=== PATIENT | female | born 1930 | race Caucasian/White ===

== ENCOUNTER 2021-09-08 22:27 | Inpatient (IN) ==
[2021-09-09] MEDS ORDERED: *HR* Heparin 5,000 UNIT/ML VIAL IVP PRN ×2 (03:57)
[2021-09-09] MEDS ORDERED: Acetaminophen 325 MG TABLET PO PRN (03:58)
[2021-09-09] MEDS ORDERED: Ondansetron 4 MG/2 ML VIAL IVP PRN (03:58)
[2021-09-09] MEDS ORDERED: Naloxone 0.4 MG/ML INJ IVP PRN (03:58)
[2021-09-09 04:49] LABS: Basophils % 0.3 %; Eosinophils % 0.1 %; Hematocrit 35.8 % (35.3-44.9); Hemoglobin 11.1 g/dL (11.5-15.4); Immature Granulocytes % 0.6 % (0-4); Lymphocytes % 9.5 %; Mean Corpuscular Hemoglobin 29.2 pg (28.0-33.3); Mean Corpuscular Volume 94.2 fL (83.0-100.0); Mean Platelet Volume 9.3 fL (9.4-12.4); Monocytes # 0.1 K/mcL (0.0-1.3); Neutrophils # 9.3 K/mcL (1.6-8.9); Platelet Count 279 K/mcL (140-400); Red Cell Distribution Width 15.3 % (11.5-14.5); Segmented Neutrophils % 88.5 %; White Blood Count 10.6 K/mcL (4.3-11.1)
[2021-09-09] MEDS: Heparin 25,000UNIT/250ML 1/2NS 25,000 UNIT/250 ML IV.SOLN IVC SCH (04:55)
[2021-09-09 04:56] LABS: Heparin anti-factor XA UFH 0.31 IU/mL (0.30-0.70); INR 1.4; Prothrombin Time 15.4 Seconds (9.4-12.1)
[2021-09-09 04:58] LABS: Activated Partial Thrombo Time 64.9 Seconds (26.0-36.0)
[2021-09-09 05:08] LABS: Alanine Aminotransferase 17 Units/L (7-52); Albumin 3.7 g/dL (3.5-5.7); Albumin/Globulin Ratio 1.2 (1.1-2.2); Alkaline Phosphatase 120 Units/L (34-104); Aspartate Amino Transferase 24 Units/L (13-39); BUN/Creatinine Ratio 18 (6-26); Bilirubin,Total 0.7 mg/dL (0.3-1.0); Blood Urea Nitrogen 11 mg/dL (8-23); Calcium 8.6 mg/dL (8.6-10.3); Carbon Dioxide 22 mEq/L (23-29); Chloride 102 mEq/L (98-107); Globulin 3.2 g/dL (2.4-3.5); Glucose 161 mg/dL (70-105); Osmolality,Calculated 281 (280-300); Potassium 3.4 mEq/L (3.5-5.1); Sodium 134 mEq/L (136-145); Total Protein 6.9 g/dL (6.4-8.9); eGFR For African Americans > 60 (> 60); eGFR For Non-African Americans > 60 (> 60)
[2021-09-09] MEDS ORDERED: Potassium Chloride Elixir 20 MEQ/15 ML UDC PO ONE (05:27)
[2021-09-09] MEDS ORDERED: Perflutren Lipid Microsphere 1.3 ML in 0.9 % Sodium Chloride 8.7 ML IVP PRN (05:47)
[2021-09-09] MEDS: Furosemide 20 MG/2 ML VIAL IVP SCH ×2 (07:56→17:23)
[2021-09-09] MEDS: levoFLOXacin 750 MG/150 ML 750 MG/150 ML BAG IVPB SCH (08:24)
[2021-09-09] MEDS ORDERED: cefTRIAXone 2,000 MG in 0.9 % Sodium Chloride Mini Bag 100 ML IVPB SCH (09:00)
[2021-09-09] MEDS: Levalbuterol Neb 1.25 MG/3 ML IH SCH ×4 (11:02→20:25)
[2021-09-09] MEDS ORDERED: *HR* HYDROcodone/Acet 5/325 mg TABLET PO PRN (12:44)
[2021-09-09] MEDS: *HR* HYDROcodone/Acet 10/325 mg TABLET PO PRN (19:40)
[2021-09-09] MEDS: *HR* Metoprolol 5 MG/5 ML VIAL IVP PRN (19:40)
[2021-09-10] MEDS: *HR* Metoprolol 5 MG/5 ML VIAL IVP PRN ×3 (01:04→15:48)
[2021-09-10] MEDS: *HR* HYDROcodone/Acet 10/325 mg TABLET PO PRN ×4 (01:11→19:59)
[2021-09-10 02:41] LABS: Hematocrit 32.6 % (35.3-44.9); Hemoglobin 10.5 g/dL (11.5-15.4); Mean Corpuscular HGB Conc 32.2 g/dL (31.6-35.5); Mean Corpuscular Hemoglobin 29.6 pg (28.0-33.3); Mean Corpuscular Volume 91.8 fL (83.0-100.0); Mean Platelet Volume 9.8 fL (9.4-12.4); Platelet Count 298 K/mcL (140-400); Red Blood Count 3.55 M/mcL (3.82-4.97); Red Cell Distribution Width 15.5 % (11.5-14.5)
[2021-09-10 02:46] LABS: White Blood Count 17.5 K/mcL (4.3-11.1)
[2021-09-10 02:56] LABS: BUN/Creatinine Ratio 22 (6-26); Blood Urea Nitrogen 21 mg/dL (8-23); Calcium 8.1 mg/dL (8.6-10.3); Carbon Dioxide 21 mEq/L (23-29); Chloride 99 mEq/L (98-107); Cholesterol 87 mg/dL (< 200); Glucose 164 mg/dL (70-105); HDL Cholesterol 44 mg/dL (40-59); LDL Cholesterol,Calculated 21 mg/dL (< 100); Magnesium 1.6 mg/dL (1.6-2.6); Osmolality,Calculated 273 (280-300); Potassium 3.6 mEq/L (3.5-5.1); Sodium 128 mEq/L (136-145); Triglycerides 111 mg/dL (< 150); eGFR For African Americans > 60 (> 60); eGFR For Non-African Americans 56 (> 60)
[2021-09-10 02:58] LABS: Iron 58 mcg/dL (50-170)
[2021-09-10 03:09] LABS: % Iron Saturation 18 % (15-50); Transferrin 224 mg/dL (203-362)
[2021-09-10 03:16] LABS: Ferritin 114 ng/mL (10-120)
[2021-09-10 03:21] LABS: Folate 18.6 ng/mL (3.0-16.0)
[2021-09-10] MEDS: Levalbuterol Neb 1.25 MG/3 ML IH SCH (04:11)
[2021-09-10 04:23] LABS: Estimated Average Glucose 105 mg/dl; Hemoglobin A1C 5.3 %
[2021-09-10] MEDS: Heparin 25,000UNIT/250ML 1/2NS 25,000 UNIT/250 ML IV.SOLN IVC SCH (08:40)
[2021-09-10] MEDS: Furosemide 20 MG/2 ML VIAL IVP SCH ×2 (08:42→15:48)
[2021-09-10] MEDS: levoFLOXacin 750 MG/150 ML 750 MG/150 ML BAG IVPB SCH (08:43)
[2021-09-10] MEDS: carvediloL 6.25 MG TABLET PO SCH (15:48)
[2021-09-11] MEDS: *HR* HYDROcodone/Acet 10/325 mg TABLET PO PRN ×3 (01:17→14:07)
[2021-09-11 02:58] LABS: Hematocrit 34.4 % (35.3-44.9); Mean Corpuscular Hemoglobin 29.6 pg (28.0-33.3); Mean Corpuscular Volume 92.5 fL (83.0-100.0); Mean Platelet Volume 9.3 fL (9.4-12.4); Platelet Count 308 K/mcL (140-400); Red Blood Count 3.72 M/mcL (3.82-4.97); Red Cell Distribution Width 15.7 % (11.5-14.5); White Blood Count 12.4 K/mcL (4.3-11.1)
[2021-09-11 03:27] LABS: BUN/Creatinine Ratio 26 (6-26); Blood Urea Nitrogen 22 mg/dL (8-23); Calcium 8.4 mg/dL (8.6-10.3); Carbon Dioxide 24 mEq/L (23-29); Chloride 102 mEq/L (98-107); Glucose 113 mg/dL (70-105); Osmolality,Calculated 280 (280-300); Potassium 3.4 mEq/L (3.5-5.1); Sodium 133 mEq/L (136-145); eGFR For African Americans > 60 (> 60); eGFR For Non-African Americans > 60 (> 60)
[2021-09-11] MEDS: Furosemide 20 MG/2 ML VIAL IVP SCH (07:47)
[2021-09-11] MEDS: carvediloL 6.25 MG TABLET PO SCH (07:47)
[2021-09-11] MEDS: Heparin 25,000UNIT/250ML 1/2NS 25,000 UNIT/250 ML IV.SOLN IVC SCH (07:48)
[2021-09-11] MEDS: levoFLOXacin 750 MG/150 ML 750 MG/150 ML BAG IVPB SCH (07:48)
[2021-09-11] MEDS ORDERED: Cholecalciferol (D-3) 1,000 UNIT (25MCG) TABLET PO SCH (09:00)
[2021-09-11] MEDS ORDERED: Aspirin Enteric Coated 81 MG Tablet PO SCH (09:00)
[2021-09-11] MEDS ORDERED: lisinopriL 20 MG TABLET PO SCH (09:00)
[2021-09-11 10:35] VITALS: BP 146/89; PULSE 94; TEMP 98; O2SAT 95
== END 2021-09-11 15:47 | disposition home health service (06) | DRG 291 ==
LOC: 3BNU → SUATTDRO 09-09 03:24
PROVIDERS: ADMIT Internal Medicine; ATTEND Internal Medicine